=== PATIENT | female | born 1995 | race Caucasian/White ===

== ENCOUNTER 2020-07-28 20:43 | Emergency (ER) | payer OTHER ==
[~2020-07-28] VITALS: Ht 170.2 cm; Wt 61.2 kg
== END 2020-07-28 23:45 | disposition home or self-care (01) ==
LOC: ER 20:43
DX: Z13.39 Encounter for screening examination for other mental health and behavioral disorders (principal); Z76.0 Encounter for issue of repeat prescription
CPT/HCPCS: 99283